=== PATIENT | female | born 1935 | race Caucasian/White ===

== ENCOUNTER → 2017-08-29 | Outpatient (CLI) | payer MEDICARE | END | disposition home or self-care (01) | LOC: PCVCCLINIC 10:30 | PROVIDERS: ATTEND Internal Medicine Cardiovascular Disease | DX: I10 Essential (primary) hypertension (principal); E78.00 Pure hypercholesterolemia, unspecified; R01.1 Cardiac murmur, unspecified; R94.31 Abnormal electrocardiogram [ECG] [EKG]; Z79.82 Long term (current) use of aspirin; Z79.899 Other long term (current) drug therapy | CPT/HCPCS: 80061; 93005; G0463 ==

== ENCOUNTER → 2018-12-26 | Outpatient (CLI) | payer MEDICARE | END | disposition home or self-care (01) | LOC: PCVCCLINIC 14:40 | PROVIDERS: ATTEND Internal Medicine Cardiovascular Disease | DX: I10 Essential (primary) hypertension (principal); E78.00 Pure hypercholesterolemia, unspecified; F32.9 Major depressive disorder, single episode, unspecified; R01.1 Cardiac murmur, unspecified; Z79.82 Long term (current) use of aspirin; Z88.0 Allergy status to penicillin; Z88.8 Allergy status to other drugs, medicaments and biological substances | CPT/HCPCS: 93005; G0463 ==

== ENCOUNTER → 2019-03-02 | Outpatient (CLI) | payer MEDICARE ==
--- NOTE | 2019-03-02 12:32 | PCVCIMAG ---
APPROVED REPORT Study performed: 03/02/2019 11:03:27 Exam: Stress Echocardiogram Indication: Hyperlipidemia, Hypertension Stress Nurse: Sandra Toussaint RN Status: routine Ht: 5 ft 3 in BP: 130/70 mmHg Rhythm: NSR Medical History Medical History: HTN, Hyperlipidemia, Murmur Procedure The patient underwent an Exercise Stress Test using the Stu Protocol. Blood pressure, heart rate, and EKG were monitored. An Echocardiogram was performed by time study technician in four stages in quad fashion. At peak stress, four selected images were obtained and placed side by side with resting images for comparison. Stress Test Details Stress Test: Exercise stress testing was performed using a Stu protocol. HR Resting HR: 75 bpmMax Heart Rate (APMHR): 138 bpm Max HR Achieved: 102 bpmTarget HR (85% APMHR): 117 bpm % of APMHR: 73 Recovery HR: 70 bpm HR response to stress: Normal HR response to stress BP Resting BP: 130/70 mmHg Max BP: 140/78 mmHg Recovery BP: 140/78 mmHg BP response to stress: Normal blood pressure response to stress. ECG Resting ECG: Sinus Rhythm Stress ECG: Sinus Rhythm Recovery ECG: Sinus Rhythm Clinical Reason for Termination: Maximal effort Exercise duration: 3 min sec Highest Stage Achieved: Stage 1: 1.7 mph at 10% grade. Exercise capacity: 4.70 METs Overall Exercise Capacity for Age: Poor Stress ECG Conclusion Submaximal stress test. Patient unable to walk. Will schedule patient for nuclear stress echo. Pre-Stress Echo The resting Echocardiogram showed normal left ventricular contractility with an estimated Ejection Fraction of about 55-60%. Post-Stress Echo The stress Echocardiogram showed normal left ventricular contractility with an estimated Ejection Fraction of about 55-60%. Conclusion Clinical Response: Non-ischemic Exercise Capacity: Below Average Stress ECG Response: Indeterminant Stress Echo Images: Indeterminant Other Information Study Quality: Technically Difficult
== END | disposition home or self-care (01) ==
LOC: PCVCIMAG 10:37
PROVIDERS: ATTEND Internal Medicine Cardiovascular Disease
DX: I10 Essential (primary) hypertension (principal); E78.5 Hyperlipidemia, unspecified; R01.1 Cardiac murmur, unspecified; E78.00 Pure hypercholesterolemia, unspecified
CPT/HCPCS: 93325; 93351